=== PATIENT | male | born 1980 | race Two or more races ===

== ENCOUNTER 2017-08-29 12:58 | Emergency (ER) | payer BC, OTHER ==
[~2017-08-29] VITALS: Ht 180.3 cm; Wt 99.8 kg
[2017-08-29 16:29] VITALS: BP 133/72
== END 2017-08-29 16:39 | disposition home or self-care (01) ==
LOC: ER 12:58
DX: M71.522 Other bursitis, not elsewhere classified, left elbow (principal); F17.210 Nicotine dependence, cigarettes, uncomplicated
CPT/HCPCS: 20610; 73080